=== PATIENT | female | born 1990 | race Caucasian/White ===

== ENCOUNTER 2024-07-20 18:39 | Emergency (ER) | payer BC, SELFPAY ==
[2024-07-20 18:46] VITALS: BP 139/83
[2024-07-20 18:48] VITALS: BP 139/83; PULSE 83; RESP 16; TEMP 37.1; O2SAT 99; BMI 33.6
--- NOTE | 2024-07-20 18:51 | ED_ITS ---
Discharge Plan Disposition Patient Disposition: Home, Self-Care Condition: Good Prescriptions Prescriptions: New cephalexin 500 mg capsule 500 mg PO BID 7 Days Qty: 14 0RF Referrals Follow up/Referrals: Provider,Referral, MD [Referring] - See instructions Activity Restrictions/Add. Instructions Additional Instructions/Restrictions: Please keep wound clean dry and covered but not with an occlusive bandage. You may wash with soap and water. Sutures need to stay in for 2 weeks. He can follow-up with your PCP or [facility] or return to ER for suture removal. For any redness pain drainage please return emerged part for evaluation. Clinical Impressions Clinical Impression: Laceration Instructions Patient Instructions: DI for Laceration Repair Print Language Print Language: [place] Discharge ED Provider: Basil Mello General Adult HPI <SOLOMON Jones - Last Filed: 07/20/24 19:31> General Chief complaint: Wound/Laceration Stated complaint: AO 07/20/24 lac to rt ring finger Time Seen by Provider: 07/20/24 18:41 History of Present Illness HPI narrative: Patient presents for evaluation of a laceration to her right fourth finger. Patient was riding a horse and the horse stumbled and patient grabbed a fence causing a laceration at the flexor crease of the DIP. She suffered no angular injury did not lose consciousness. Related Data Previous Rx's ?Medication ?Instructions ?Recorded cephalexin 500 mg capsule 500 mg PO BID 7 days #14 caps 07/20/24 Allergies Allergy/AdvReac Type Severity Reaction Status Date / Time Penicillins Allergy Hives Verified 07/20/24 19:00 PFS <SOLOMON Jones - Last Filed: 07/20/24 19:31> [facility] Disclaimer: The information contained in this section may have been updated after the patient was seen, as this information can be updated by other users. Social History (Updated 07/20/24 @ 19:31 by SOLOMON Jones) Smoking Status: Never smoker alcohol intake: never current occupational status: employed Travel in the last 8 weeks: Inside the [place] <SOLOMON Jones - Last Filed: 07/20/24 19:31> ROS Obtained: Yes Systems reviewed as appropriate & no additional complaints except as documented Physical Exam <SOLOMON Jones - Last Filed: 07/20/24 19:31> General General appearance: alert and in no apparent distress Respiratory Respiratory exam: Present normal lung sounds bilaterally Cardiovascular Cardiovascular exam: Present regular rate Neurological Exam Neurological exam: Present alert and oriented X3 Medical Decision Making <SOLOMON Jones - Last Filed: 07/20/24 19:31> Shadi Inquiry Pt receiving controlled substance: No Vital Signs: 07/20/24 18:46 07/20/24 18:48 07/20/24 19:00 Temperature 98.8 F Temperature Source Oral Pulse Rate [Left Radial] 83 Respiratory Rate 16 Blood Pressure 139/83 120/77 Blood Pressure [Right Arm] 139/83 Blood Pressure Mean 94 85 Blood Pressure Mean [Right Arm] 101 02 Sat by Pulse Oximetry 99 Oxygen Delivery Method Room Air 07/20/24 19:31 07/20/24 20:00 Temperature Temperature Source Pulse Rate [Left Radial] Respiratory Rate Blood Pressure 116/60 116/71 Blood Pressure [Right Arm] Blood Pressure Mean 78 82 Blood Pressure Mean [Right Arm] 02 Sat by Pulse Oximetry Oxygen Delivery Method Orders (Tests/Meds): ED MEDICATIONS Discontinued Medications Generic Name Dose Route Start Last Admin Trade Name Freq PRN Reason Stop Dose Admin Cephalexin HCl 500 mg 07/20/24 18:54 07/20/24 19:01 Cephalexin 500mg Capsule PO 07/20/24 18:55 500 mg ONCE ONE Administration Lidocaine/Epinephrine 10 ml 07/20/24 18:54 07/20/24 19:02 Lidocaine 1% W/Epi 1:100,000 20ml Vial SQ 07/20/24 18:55 10 ml ONCE ONE Administration ORDERS Category Date Time Status Hand XR right minimum 3 views [XR hand RT min 3V] Stat Exams 07/20/24 18:54 Completed Medical Decision Narrative: In summary patient is a 34-year-old female who presents to the emergency department for evaluation of right fourth finger laceration, which is her dominant hand. Patient is hemodynamically stable upon arrival, afebrile. Physical exam shows a centimeter and a half laceration to the DIP flexor crease. She is neurovascularly intact distally and has full range of motion and tendon appears to be intact on gross exam. Differential diagnosis includes simple laceration versus possible complex or deep laceration versus fracture Cetera. Initial workup will be conducted with plain film x-rays. Initial interventions include Keflex p.o. Patient's tetanus is up-to-date. Initial workup reviewed by me and my informal to rotation shows no acute fracture or bony injury. Patient given local anesthesia as opposed to digital block due to the size of the wound. She had a 2 cm linear laceration in the flexor crease that was repaired with five 4.0 nylon sutures in an interrupted fashion. After anesthesia full exam performed for tendon integrity. Patient has preserved flexion and extension with no palpable defect and the laceration is very superficial. <Basil Mello MD - Last Filed: 07/20/24 20:17> Vital Signs: 07/20/24 18:46 07/20/24 18:48 07/20/24 19:00 Temperature 98.8 F Temperature Source Oral Pulse Rate [Left Radial] 83 Respiratory Rate 16 Blood Pressure 139/83 120/77 Blood Pressure [Right Arm] 139/83 Blood Pressure Mean 94 85 Blood Pressure Mean [Right Arm] 101 02 Sat by Pulse Oximetry 99 Oxygen Delivery Method Room Air 07/20/24 19:31 07/20/24 20:00 Temperature Temperature Source Pulse Rate [Left Radial] Respiratory Rate Blood Pressure 116/60 116/71 Blood Pressure [Right Arm] Blood Pressure Mean 78 82 Blood Pressure Mean [Right Arm] 02 Sat by Pulse Oximetry Oxygen Delivery Method Orders (Tests/Meds): ED MEDICATIONS Discontinued Medications Generic Name Dose Route Start Last Admin Trade Name Freq PRN Reason Stop Dose Admin Cephalexin HCl 500 mg 07/20/24 18:54 07/20/24 19:01 Cephalexin 500mg Capsule PO 07/20/24 18:55 500 mg ONCE ONE Administration Lidocaine/Epinephrine 10 ml 07/20/24 18:54 07/20/24 19:02 Lidocaine 1% W/Epi 1:100,000 20ml Vial SQ 07/20/24 18:55 10 ml ONCE ONE Administration ORDERS Category Date Time Status Hand XR right minimum 3 views [XR hand RT min 3V] Stat Exams 07/20/24 18:54 Completed Medical Decision Narrative: In summary patient is a 34-year-old female who presents to the emergency department for evaluation of right fourth finger laceration, which is her dominant hand. Patient is hemodynamically stable upon arrival, afebrile. Physical exam shows a centimeter and a half laceration to the DIP flexor crease. She is neurovascularly intact distally and has full range of motion and tendon appears to be intact on gross exam. Differential diagnosis includes simple laceration versus possible complex or deep laceration versus fracture Cetera. Initial workup will be conducted with plain film x-rays. Initial interventions include Keflex p.o. Patient's tetanus is up-to-date. Initial workup reviewed by me and my informal to rotation shows no acute fracture or bony injury. Patient given local anesthesia as opposed to digital block due to the size of the wound. She had a 2 cm linear laceration in the flexor crease that was repaired with five 4.0 nylon sutures in an interrupted fashion. After anesthe chitra full exam performed for tendon integrity. Patient has preserved flexion and extension with no palpable defect and the laceration is very superficial. I was consulted by the MYRTLE, and we discussed the complexity of the problems being addressed. I approved the treatment and management plan for this patient's care in the emergency department, thus performing a substantive portion of the medical decision making. Basil Mello MD Procedures <SOLOMON Jones - Last Filed: 07/20/24 19:31> Laceration Laceration 1: Site: finger (Right ring finger flexor DIP) Side (If applicable): right Size (cm): 2 Description: linear Depth: simple, single layer Local Anesthetic: lidocaine 1% and with epi Amount of anesthesia used (mL): 5 Pre-repair: wound explored, irrigated extensively and deep structures intact Skin layer closed with: nylon Size (cm): 4-0 Number of sutures: 5 Technique: simple, interrupted Critical Care <SOLOMON Jones - Last Filed: 07/20/24 19:31> Critical Care Time Critical Care Time: No
--- NOTE | 2024-07-20 18:54 | XR_ITS ---
PROCEDURE INFORMATION: Exam: XR Right Hand Exam date and time: 07/20/2024 7:00 PM Age: 34 years old Clinical indication: Pain; Finger(s); Right; Additional info: Dip laceration TECHNIQUE: Imaging protocol: Radiologic exam of the right hand. Views: 3 or more views. COMPARISON: No relevant prior studies available. FINDINGS: Bones/joints: No acute fracture or malalignment. Soft tissues: No radiopaque soft tissue foreign body. IMPRESSION: No acute osseous findings.
[2024-07-20 19:00] VITALS: BP 120/77
[2024-07-20] MEDS: cephALEXin 500MG CAPSULE 500 MG PO (19:01)
[2024-07-20] MEDS: LIDOCAINE 1% W/EPI 1:100,000 20ML VIAL 10 ML SQ (19:02)
[2024-07-20 19:31] VITALS: BP 116/60
[2024-07-20 20:00] VITALS: BP 116/71
[2024-07-20 20:02] VITALS: BP 116/71; PULSE 61; RESP 18; TEMP 36.8; O2SAT 98
== END 2024-07-20 20:02 | disposition home or self-care (01) ==
PROVIDERS: Emergency Provider Emergency Medicine; PCP Physician Assistant
DX: S61.214A Laceration without foreign body of right ring finger without damage to nail, initial encounter (principal); W26.8XXA Contact with other sharp object(s), not elsewhere classified, initial encounter
CPT/HCPCS: 12001; 73130; 99283